=== PATIENT | female | born 2000 | race American Indian/Alaskan Native ===

== ENCOUNTER 2022-04-19 10:40 | Inpatient (IN) | payer BC ==
[2022-04-19] MEDS ORDERED: hydrALAZINE 20 MG/1 ML INJ IV ONE (12:18)
[2022-04-19 12:22] LABS: Basophils # (Auto) 0.1 K/mm3 (0.0-0.1); Basophils % (Auto) 0.5 % (0.0-1.8); Eosinophils # (Auto) 0.2 K/mm3 (0.0-0.4); Eosinophils % (Auto) 1.8 % (0.0-4.3); Hematocrit 35.4 % (30.3-42.9); Hemoglobin 11.6 gm/dl (10.1-14.3); Lymphocytes # (Auto) 1.2 K/mm3 (1.2-5.4); Lymphocytes % (Auto) 10.4 % (13.4-35.0); Mean Corpuscular HGB Conc 33 % (30-34); Mean Corpuscular Volume 85 fl (79-97); Monocytes # (Auto) 1.1 K/mm3 (0.0-0.8); Monocytes % (Auto) 9.4 % (0.0-7.3); Red Blood Count 4.15 M/mm3 (3.65-5.03)
[2022-04-19] MEDS: LACTATED RINGERS 1,000 ML IV SCH (12:25)
[2022-04-19 12:43] LABS: Alanine Aminotransferase 95 units/L (7-56); Uric Acid 5.4 mg/dL (3.5-7.6)
[2022-04-19 12:44] LABS: Platelet Count 89 K/mm3 (140-440)
[2022-04-19 12:45] LABS: Bilirubin,Urine NEG (Negative); Blood,Urine NEG (Negative); Color,Urine Yellow (Yellow); Urobilinogen,Urine < 2.0 mg/dL (<2.0)
[2022-04-19 12:50] LABS: Bacteria,Urine 1+ /HPF (Negative); Mucus,Urine FEW /HPF
[2022-04-19] MEDS ORDERED: SIMETHICONE 80 MG CHEW TAB PO ONE (13:28)
[2022-04-19] MEDS ORDERED: MINERAL OIL 30 ML ORAL LIQD PO PRN (15:32)
[2022-04-19] MEDS ORDERED: CARBOPROST TROMETHAMINE 250 MCG/1 ML INJ IM PRN (15:32)
[2022-04-19] MEDS ORDERED: METHYLERGONOVINE MALEATE 0.2 MG/ML VIAL IM PRN (15:32)
[2022-04-19] MEDS ORDERED: OXYTOCIN 10 UNIT/1 ML INJ IM PRN (15:32)
[2022-04-19] MEDS ORDERED: TERBUTALINE 1 MG/1 ML INJ SUB-Q PRN (15:32)
[2022-04-19] MEDS ORDERED: ePHEDrine SULFATE 50 MG/1 ML INJ IV PRN (15:32)
[2022-04-19] MEDS ORDERED: LOPERAMIDE 2 MG CAP PO PRN (15:32)
[2022-04-19] MEDS ORDERED: LACTATED RINGERS 1,000 ML IV SCH (15:45)
[2022-04-19] MEDS ORDERED: MAGNESIUM SULFATE 4 GM/100 ML BAG IV ONE ×2 (16:00→18:29)
[2022-04-19] MEDS ORDERED: LIDOCAINE (2%) 20 MG/1 ML VIAL 20 ML MDV INFILTRATI ONE (16:00)
[2022-04-19] MEDS ORDERED: miSOPROStol 200 MCG TAB PR PRN (16:00)
[2022-04-19] MEDS ORDERED: OXYTOCIN DRIP 30 UNITS/500 ML BAG IV SCH (16:00)
[2022-04-19] MEDS ORDERED: MAGNESIUM SULFATE 40GM/1000ML 40 GM/1,000 ML BAG IV SCH (16:30)
[2022-04-19] MEDS: OXYTOCIN DRIP 30 UNITS/500 ML BAG IV SCH (19:35)
[2022-04-20] MEDS: BUTORPHANOL 2 MG/1 ML INJ IV PRN ×2 (00:55→06:08)
[2022-04-20] MEDS: OXYTOCIN DRIP 30 UNITS/500 ML BAG IV SCH (11:19)
[2022-04-20] MEDS: LACTATED RINGERS 1,000 ML IV SCH (11:24)
--- NOTE | 2022-04-20 11:26 | History and Physical Report ---
History of Present Illness Date of examination: 04/19/22 Date of admission: 04/19/22 17:34 Chief complaint: My chest hurts History of present illness: Patient is 21-year-old 1 para 0 who presents at 39 weeks with complaint of chest pain and back pain. The pain is actually more epigastric in nature. Patient states that she started having pain yesterday but it was worse on the morning of admission. Patient states she had pizza the day before and activity made the pain worse. When patient presented to triage she was found to have severely elevated blood pressures in the 160s to 170s over 90s to 100s range. This persisted for the first several blood pressures that she was here. Labs were drawn and she was found to have elevated liver function tests, however only minimal protein in her urine. She had no evidence of edema no hyperreflexia. She was also complaining of a headache. Patient receives care at [facility]. She has no previous history of elevated blood pressure. Her course was complicated by late presentation to care with her first visit being at 33 weeks gestation. Because of her persistent elevated blood pressure even after being treated with a dose of hydralazine, decision was made to keep the patient and begin induction of labor for labile gestational hypertension. Past History Past Medical History: no pertinent history Past Surgical History: no surgical history Social history: single - Obstetrical History Expected Date of Delivery: 04/27/22 Actual Gestation: 39 Week(s) 0 Day(s) : 1 Medications and Allergies Allergies Allergy/AdvReac Type Severity Reaction Status Date / Time No Known Allergies Allergy Verified 04/19/22 11:27 Active Meds: Active Medications Butorphanol Tartrate (Butorphanol 2 Mg/1 Ml Inj) 2 mg IV Q2H PRN PRN Reason: Labor Pain Last Admin: 04/20/22 06:08 Dose: 2 mg Carboprost Tromethamine (Carboprost Tromethamine 250 Mcg/1 Ml Inj) 250 mcg IM ONCE PRN PRN Reason: Uterine Bleeding Ephedrine Sulfate (Ephedrine Sulfate 50 Mg/1 Ml Inj) 10 mg IV Q2M PRN PRN Reason: Hypotension Lactated Ringer's (Lactated Ringers) 1,000 mls @ 125 mls/hr IV DIRECT CHIRAG Last Admin: 04/19/22 12:25 Dose: 125 mls/hr Oxytocin/Sodium Chloride (Pitocin/Ns 30 Unit/500ml) 30 units in 500 mls @ 2 mls/hr IV TITR CHIRAG; Protocol Last Admin: 04/20/22 11:19 Dose: 4 ml/hr, 4 mls/hr Lactated Ringer's (Lactated Ringers) 1,000 mls @ 125 mls/hr IV DIRECT CHIRAG Oxytocin/Sodium Chloride (Pitocin/Ns 30 Unit/500ml) 30 units in 500 mls @ 40 mls/hr IV TITR CHIRAG; Protocol Magnesium Sulfate (Magnesium Sulfate 40gm/1000ml) 40 gm in 1,000 mls @ 50 mls/hr IV DIRECT CHIRAG Last Admin: 04/19/22 19:42 Dose: 2 gm/hr, 50 mls/hr Labetalol HCl (Labetalol 200 Mg Tab) 200 mg PO BID CHIRAG Last Admin: 04/20/22 01:23 Dose: 200 mg Loperamide HCl (Loperamide 2 Mg Cap) 2 mg PO ONCE PRN PRN Reason: give with Hemabate Methylergonovine Maleate (Methylergonovine Maleate 0.2 Mg/Ml Vial) 0.2 mg IM ONCE PRN PRN Reason: Uterine Bleeding Mineral Oil (Mineral Oil 30 Ml Oral Liqd) 30 ml PO QHS PRN PRN Reason: Constipation Misoprostol (Misoprostol 200 Mcg Tab) [address] ONCE PRN PRN Reason: Uterine Bleeding Oxytocin (Oxytocin 10 Unit/1 Ml Inj) 10 unit IM ONCE PRN PRN Reason: Uterine Bleeding Terbutaline Sulfate (Terbutaline 1 Mg/1 Ml Inj) 0.25 mg SUB-Q ONCE PRN PRN Reason: Hyperstimulation/Hypertonicity Review of Systems All systems: negative Cardiovascular: chest pain Gastrointestinal: abdominal pain - Vital Signs Vital signs: Vital Signs Pulse Pulse Ox 83 98 04/19/22 11:23 04/19/22 11:23 Temp Pulse Resp BP Pulse Ox 98.8 F 83 18 129/82 96 04/20/22 05:17 04/20/22 11:21 04/20/22 05:17 04/20/22 11:17 04/20/22 11:21 - Physical Exam Cardiovascular: Regular rate, Normal S1, Normal S2 Lungs: Positive: Clear to auscultation, Normal air movement Abdomen: Positive: normal appearance, soft, normal bowel sounds Genitourinary (Female): Positive: normal external genitalia, normal perenium Vagina: Positive: normal moisture Uterus: Positive: enlarged Anus/Rectum: Positive: normal perianal skin - Obstetrical Cervical Dilatation: 2.5 Cervical Effacement Percentage: 50 station: -3 Uterine Contraction Pattern: Irregular Uterine Contraction Intensity: Moderate Results Result Diagrams: 04/19/22 11:46 04/19/22 11:46 Abnormal lab results 04/19/22 04/19/22 04/20/22 Range/Units 11:46 11:46 07:38 WBC 11.3 H (4.5-11.0) K/mm3 Plt Count 89 L (140-440) K/mm3 Lymph % (Auto) 10.4 L (13.4-35.0) % [facility] % (Auto) 9.4 H (0.0-7.3) % [facility] # (Auto) 1.1 H (0.0-0.8) K/mm3 Seg Neutrophils % 77.9 H (40.0-70.0) % Seg Neutrophils # 8.8 H (1.8-7.7) K/mm3 Magnesium 6.40 H (1.7-2.3) mg/dL AST 103 H (5-40) units/L ALT 95 H (7-56) units/L Lactate Dehydrogenase 299 H (91-180) units/L All other labs normal. Assessment and Plan IUP at 39 weeks with elevated blood pressure and low platelets as well as elevated liver function test. Will admit for labor gestational hypertension. We will proceed with induction of labor. Patient replaced on magnesium therapy. Patient to begin labetalol 100 mg twice daily. All this discussed with the rohit saravia and her family member and patient understands. Anticipate .
--- NOTE | 2022-04-20 11:30 | Progress Note ---
Assessment and Plan Hospital day 2 with induction of labor secondary to labor gestational hypertension and low platelets. Continue induction of labor. Anticipate Subjective - Subjective Date of service: 04/20/22 Interval history: Patient is 21-year-old 1 para 0 who presents at 39 weeks with complaint of chest pain and back pain. The pain is actually more epigastric in nature. Patient states that she started having pain yesterday but it was worse on the morning of admission. Patient states she had pizza the day before and activity made the pain worse. When patient presented to triage she was found to have severely elevated blood pressures in the 160s to 170s over 90s to 100s range. This persisted for the first several blood pressures that she was here. Labs were drawn and she was found to have elevated liver function tests, however only minimal protein in her urine. She had no evidence of edema no hyperreflexia. She was also complaining of a headache. Patient receives care at [facility]. She has no previous history of elevated blood pressure. Her course was complicated by late presentation to care with her first visit being at 33 weeks gestation. Because of her persistent elevated blood pressure even after being treated with a dose of hydralazine, decision was made to keep the patient and begin induction of labor for labile gestational hypertension. 04/20-patient with SROM overnight. She continues to feel contractions. heart tones are normal. Blood pressure remains labile. Patient reports: new complaints, loss of fluid, movement normal Objective - Vital Signs Vital Signs: Vital Signs - 12hr 04/19/22 04/19/22 04/19/22 23:31 23:36 23:41 Temperature Pulse Rate 91 H 89 102 H Respiratory Rate Blood Pressure Blood Pressure [Right] O2 Sat by Pulse 98 97 96 Oximetry 04/19/22 04/19/22 04/19/22 23:46 23:47 23:51 Temperature Pulse Rate 97 H 89 91 H Respiratory Rate Blood Pressure 131/84 Blood Pressure [Right] O2 Sat by Pulse 97 97 Oximetry 04/19/22 04/20/22 04/20/22 23:56 00:01 00:06 Temperature Pulse Rate 94 H 92 H 93 H Respiratory Rate Blood Pressure Blood Pressure [Right] O2 Sat by Pulse 97 98 98 Oximetry 04/20/22 04/20/22 04/20/22 00:11 00:16 00:17 Temperature Pulse Rate 96 H 102 H 96 H Respiratory Rate Blood Pressure 155/91 Blood Pressure [Right] O2 Sat by Pulse 97 99 Oximetry 04/20/22 04/20/22 04/20/22 00:21 00:26 00:31 Temperature Pulse Rate 92 H 96 H 98 H Respiratory Rate Blood Pressure Blood Pressure [Right] O2 Sat by Pulse 96 99 97 Oximetry 04/20/22 04/20/22 04/20/22 00:36 00:41 00:46 Temperature Pulse Rate 100 H 100 H 99 H Respiratory Rate Blood Pressure Blood Pressure [Right] O2 Sat by Pulse 98 99 98 Oximetry 04/20/22 04/20/22 04/20/22 00:48 00:51 00:54 Temperature 98.0 F Pulse Rate 90 100 H 98 H Respiratory 20 Rate Blood Pressure 158/95 Blood Pressure 158/95 [Right] O2 Sat by Pulse 100 99 92 Oximetry 04/20/22 04/20/22 04/20/22 00:56 01:01 01:06 Temperature Pulse Rate 97 H 103 H 97 H Respiratory Rate Blood Pressure Blood Pressure [Right] O2 Sat by Pulse 93 96 96 Oximetry 04/20/22 04/20/22 04/20/22 01:11 01:16 01:18 Temperature Pulse Rate 112 H 100 H 96 H Respiratory Rate Blood Pressure 152/88 Blood Pressure [Right] O2 Sat by Pulse 96 95 Oximetry 04/20/22 04/20/22 04/20/22 01:21 01:23 01:26 Temperature Pulse Rate 102 H 97 H Respiratory Rate Blood Pressure 152/88 Blood Pressure [Right] O2 Sat by Pulse 97 96 Oximetry 04/20/22 04/20/22 04/20/22 01:31 01:36 01:41 Temperature Pulse Rate 97 H 94 H 90 Respiratory Rate Blood Pressure Blood Pressure [Right] O2 Sat by Pulse 97 96 98 Oximetry 04/20/22 04/20/22 04/20/22 01:46 01:47 01:51 Temperature Pulse Rate 97 H 95 H 94 H Respiratory Rate Blood Pressure 142/90 Blood Pressure [Right] O2 Sat by Pulse 98 96 Oximetry 04/20/22 04/20/22 04/20/22 01:56 02:00 02:01 Temperature Pulse Rate 91 H 89 91 H Respiratory Rate Blood Pressure Blood Pressure [Right] O2 Sat by Pulse 95 94 96 Oximetry 04/20/22 04/20/22 04/20/22 02:05 02:06 02:11 Temperature Pulse Rate 92 H 101 H 96 H Respiratory Rate Blood Pressure Blood Pressure [Right] O2 Sat by Pulse 93 99 97 Oximetry 04/20/22 04/20/22 04/20/22 02:16 02:19 02:21 Temperature Pulse Rate 94 H 94 H 96 H Respiratory Rate Blood Pressure Blood Pressure [Right] O2 Sat by Pulse 97 94 96 Oximetry 04/20/22 04/20/22 04/20/22 02:26 02:31 02:36 Temperature Pulse Rate 99 H 94 H 90 Respiratory Rate Blood Pressure Blood Pressure [Right] O2 Sat by Pulse 94 97 96 Oximetry 04/20/22 04/20/22 04/20/22 02:41 02:46 02:47 Temperature Pulse Rate 93 H 94 H 97 H Respiratory Rate Blood Pressure 136/82 Blood Pressure [Right] O2 Sat by Pulse 96 95 94 Oximetry 04/20/22 04/20/22 04/20/22 02:51 02:54 02:56 Temperature Pulse Rate 86 91 H 91 H Respiratory Rate Blood Pressure Blood Pressure [Right] O2 Sat by Pulse 95 93 95 Oximetry 04/20/22 04/20/22 04/20/22 03:01 03:06 03:11 Temperature Pulse Rate 92 H 88 86 Respiratory Rate Blood Pressure Blood Pressure [Right] O2 Sat by Pulse 94 97 97 Oximetry 04/20/22 04/20/22 04/20/22 03:16 03:17 03:18 Temperature Pulse Rate 100 H 98 H 85 Respiratory Rate Blood Pressure 137/77 Blood Pressure [Right] O2 Sat by Pulse 95 94 Oximetry 04/20/22 04/20/22 04/20/22 03:21 03:26 03:29 Temperature Pulse Rate 100 H 90 91 H Respiratory Rate Blood Pressure Blood Pressure [Right] O2 Sat by Pulse 96 96 93 Oximetry 04/20/22 04/20/22 04/20/22 03:31 03:35 03:36 Temperature Pulse Rate 90 99 H 89 Respiratory Rate Blood Pressure Blood Pressure [Right] O2 Sat by Pulse 96 94 97 Oximetry 04/20/22 04/20/22 04/20/22 03:41 03:46 03:47 Temperature Pulse Rate 89 89 88 Respiratory Rate Blood Pressure 110/69 Blood Pressure [Right] O2 Sat by Pulse 95 95 94 Oximetry 04/20/22 04/20/22 04/20/22 03:51 03:56 04:01 Temperature Pulse Rate 88 88 88 Respiratory Rate Blood Pressure Blood Pressure [Right] O2 Sat by Pulse 96 94 95 Oximetry 04/20/22 04/20/22 04/20/22 04:06 04:07 04:11 Temperature Pulse Rate 90 95 H 89 Respiratory Rate Blood Pressure Blood Pressure [Right] O2 Sat by Pulse 95 93 95 Oximetry 04/20/22 04/20/22 04/20/22 04:16 04:18 04:21 Temperature Pulse Rate 99 H 95 H 90 Respiratory Rate Blood Pressure 130/83 Blood Pressure [Right] O2 Sat by Pulse 96 94 94 Oximetry 04/20/22 04/20/22 04/20/22 04:24 04:26 04:31 Temperature Pulse Rate 91 H 98 H 91 H Respiratory Rate Blood Pressure Blood Pressure [Right] O2 Sat by Pulse 94 97 96 Oximetry 04/20/22 04/20/22 04/20/22 04:36 04:38 04:41 Temperature Pulse Rate 90 97 H 94 H Respiratory Rate Blood Pressure Blood Pressure [Right] O2 Sat by Pulse 96 94 95 Oximetry 04/20/22 04/20/22 04/20/22 04:44 04:46 04:48 Temperature Pulse Rate 90 104 H 95 H Respiratory Rate Blood Pressure 141/84 Blood Pressure [Right] O2 Sat by Pulse 94 94 Oximetry 04/20/22 04/20/22 04/20/22 04:50 04:51 04:56 Temperature Pulse Rate 89 92 H 95 H Respiratory Rate Blood Pressure Blood Pressure [Right] O2 Sat by Pulse 94 96 95 Oximetry 04/20/22 04/20/22 04/20/22 05:01 05:06 05:11 Temperature Pulse Rate 85 89 94 H Respiratory Rate Blood Pressure Blood Pressure [Right] O2 Sat by Pulse 96 97 96 Oximetry 04/20/22 04/20/22 04/20/22 05:12 05:16 05:17 Temperature 98.8 F Pulse Rate 93 H 93 H 87 Respiratory 18 Rate Blood Pressure 130/80 Blood Pressure 130/80 [Right] O2 Sat by Pulse 94 94 95 Oximetry 04/20/22 04/20/22 04/20/22 05:19 05:21 05:24 Temperature Pulse Rate 87 88 88 Respiratory Rate Blood Pressure Blood Pressure [Right] O2 Sat by Pulse 94 95 94 Oximetry 04/20/22 04/20/22 04/20/22 05:26 05:31 05:36 Temperature Pulse Rate 88 88 87 Respiratory Rate Blood Pressure Blood Pressure [Right] O2 Sat by Pulse 95 97 97 Oximetry 04/20/22 04/20/22 04/20/22 05:41 05:42 05:46 Temperature Pulse Rate 88 94 H 86 Respiratory Rate Blood Pressure Blood Pressure [Right] O2 Sat by Pulse 97 93 95 Oximetry 04/20/22 04/20/22 04/20/22 05:47 05:49 05:51 Temperature Pulse Rate 88 86 86 Respiratory Rate Blood Pressure 129/78 Blood Pressure [Right] O2 Sat by Pulse 94 95 Oximetry 04/20/22 04/20/22 04/20/22 05:56 06:01 06:06 Temperature Pulse Rate 88 88 90 Respiratory Rate Blood Pressure Blood Pressure [Right] O2 Sat by Pulse 96 95 97 Oximetry 04/20/22 04/20/22 04/20/22 06:09 06:11 06:16 Temperature Pulse Rate 95 H 89 89 Respiratory Rate Blood Pressure Blood Pressure [Right] O2 Sat by Pulse 94 94 95 Oximetry 04/20/22 04/20/22 04/20/22 06:17 06:21 06:26 Temperature Pulse Rate 88 87 89 Respiratory Rate Blood Pressure 126/67 Blood Pressure [Right] O2 Sat by Pulse 94 93 93 Oximetry 04/20/22 04/20/22 04/20/22 06:31 06:36 06:41 Temperature Pulse Rate 86 85 85 Respiratory Rate Blood Pressure Blood Pressure [Right] O2 Sat by Pulse 93 96 95 Oximetry 04/20/22 04/20/22 04/20/22 06:46 06:47 06:51 Temperature Pulse Rate 89 90 84 Respiratory Rate Blood Pressure 123/69 Blood Pressure [Right] O2 Sat by Pulse 95 96 Oximetry 04/20/22 04/20/22 04/20/22 06:56 07:01 07:06 Temperature Pulse Rate 93 H 87 82 Respiratory Rate Blood Pressure Blood Pressure [Right] O2 Sat by Pulse 97 97 96 Oximetry 04/20/22 04/20/22 04/20/22 07:11 07:13 07:16 Temperature Pulse Rate 79 82 80 Respiratory Rate Blood Pressure Blood Pressure [Right] O2 Sat by Pulse 96 94 95 Oximetry 04/20/22 04/20/22 04/20/22 07:17 07:21 07:26 Temperature Pulse Rate 81 78 79 Respiratory Rate Blood Pressure 110/58 Blood Pressure [Right] O2 Sat by Pulse 97 96 Oximetry 04/20/22 04/20/22 04/20/22 07:31 07:36 07:41 Temperature Pulse Rate 78 80 79 Respiratory Rate Blood Pressure Blood Pressure [Right] O2 Sat by Pulse 97 96 93 Oximetry 04/20/22 04/20/22 04/20/22 07:46 07:47 07:51 Temperature Pulse Rate 81 80 78 Respiratory Rate Blood Pressure 132/76 Blood Pressure [Right] O2 Sat by Pulse 95 95 Oximetry 04/20/22 04/20/22 04/20/22 07:56 08:01 08:06 Temperature Pulse Rate 79 79 84 Respiratory Rate Blood Pressure Blood Pressure [Right] O2 Sat by Pulse 98 96 97 Oximetry 04/20/22 04/20/22 04/20/22 08:11 08:16 08:17 Temperature Pulse Rate 78 77 79 Respiratory Rate Blood Pressure 115/73 Blood Pressure [Right] O2 Sat by Pulse 95 96 Oximetry 04/20/22 04/20/22 04/20/22 08:21 08:26 08:31 Temperature Pulse Rate 86 78 79 Respiratory Rate Blood Pressure Blood Pressure [Right] O2 Sat by Pulse 95 97 96 Oximetry 04/20/22 04/20/22 04/20/22 08:36 08:41 08:46 Temperature Pulse Rate 81 81 79 Respiratory Rate Blood Pressure Blood Pressure [Right] O2 Sat by Pulse 97 97 98 Oximetry 04/20/22 04/20/22 04/20/22 08:47 08:51 08:56 Temperature Pulse Rate 81 80 84 Respiratory Rate Blood Pressure 122/76 Blood Pressure [Right] O2 Sat by Pulse 98 98 Oximetry 04/20/22 04/20/22 04/20/22 09:01 09:02 09:06 Temperature Pulse Rate 79 77 79 Respiratory Rate Blood Pressure Blood Pressure [Right] O2 Sat by Pulse 98 92 97 Oximetry 04/20/22 04/20/22 04/20/22 09:11 09:16 09:17 Temperature Pulse Rate 72 75 76 Respiratory Rate Blood Pressure 122/78 Blood Pressure [Right] O2 Sat by Pulse 97 96 Oximetry 04/20/22 04/20/22 04/20/22 09:21 09:26 09:31 Temperature Pulse Rate 79 75 80 Respiratory Rate Blood Pressure Blood Pressure [Right] O2 Sat by Pulse 98 97 96 Oximetry 04/20/22 04/20/22 04/20/22 09:36 09:41 09:46 Temperature Pulse Rate 77 83 80 Respiratory Rate Blood Pressure Blood Pressure [Right] O2 Sat by Pulse 96 97 97 Oximetry 04/20/22 04/20/22 04/20/22 09:47 09:51 09:56 Temperature Pulse Rate 77 79 73 Respiratory Rate Blood Pressure 127/82 Blood Pressure [Right] O2 Sat by Pulse 97 96 Oximetry 04/20/22 04/20/22 04/20/22 10:01 10:04 10:06 Temperature Pulse Rate 77 77 78 Respiratory Rate Blood Pressure Blood Pressure [Right] O2 Sat by Pulse 95 94 95 Oximetry 04/20/22 04/20/22 04/20/22 10:11 10:16 10:17 Temperature Pulse Rate 79 78 82 Respiratory Rate Blood Pressure 121/77 Blood Pressure [Right] O2 Sat by Pulse 96 96 Oximetry 04/20/22 04/20/22 04/20/22 10:21 10:26 10:31 Temperature Pulse Rate 78 76 77 Respiratory Rate Blood Pressure Blood Pressure [Right] O2 Sat by Pulse 96 96 94 Oximetry 04/20/22 04/20/22 04/20/22 10:36 10:41 10:46 Temperature Pulse Rate 78 76 77 Respiratory Rate Blood Pressure Blood Pressure [Right] O2 Sat by Pulse 96 96 95 Oximetry 04/20/22 04/20/22 04/20/22 10:47 10:51 10:56 Temperature Pulse Rate 80 76 77 Respiratory Rate Blood Pressure 119/75 Blood Pressure [Right] O2 Sat by Pulse 95 96 Oximetry 04/20/22 04/20/22 04/20/22 10:58 11:01 11:06 Temperature Pulse Rate 82 75 78 Respiratory Rate Blood Pressure Blood Pressure [Right] O2 Sat by Pulse 94 96 96 Oximetry 04/20/22 04/20/22 04/20/22 11:09 11:11 11:15 Temperature Pulse Rate 78 77 82 Respiratory Rate Blood Pressure Blood Pressure [Right] O2 Sat by Pulse 94 94 94 Oximetry 04/20/22 04/20/22 04/20/22 11:16 11:17 11:21 Temperature Pulse Rate 76 80 83 Respiratory Rate Blood Pressure 129/82 Blood Pressure [Right] O2 Sat by Pulse 96 96 Oximetry 04/20/22 04/20/22 11:22 11:26 Temperature Pulse Rate 79 Respiratory Rate Blood Pressure 129/82 Blood Pressure [Right] O2 Sat by Pulse 98 Oximetry - Exam Breasts: deferred Cardiovascular: Regular rate, Normal S1, Normal S2 Lungs: Clear to auscultation, Normal air movement Abdomen: Present: normal appearance, soft, normal bowel sounds Uterus: Present: normal, firm FHR: auscultation normal Cervical Dilatation: 4.5 Cervical Effacement Percentage: 90 station: -2 Uterine Contraction Pattern: Regular Uterine Contraction Intensity: Moderate Deep Tendon Reflex Grade: Normal +2 - Labs Labs: Abnormal Labs 04/19/22 04/19/22 04/20/22 11:46 11:46 07:38 WBC 11.3 H Plt Count 89 L Lymph % (Auto) 10.4 L [place] % (Auto) 9.4 H [place] # (Auto) 1.1 H Seg Neutrophils % 77.9 H Seg Neutrophils # 8.8 H Magnesium 6.40 H AST 103 H ALT 95 H Lactate Dehydrogenase 299 H Laboratory Results - last 24 hr 04/19/22 04/19/22 04/19/22 11:46 11:46 11:46 WBC 11.3 H RBC 4.15 Hgb 11.6 Hct 35.4 MCV 85 MCH 28 MCHC 33 RDW 15.0 Plt Count 89 L Lymph % (Auto) 10.4 L [place] % (Auto) 9.4 H Eos % (Auto) 1.8 Baso % (Auto) 0.5 Lymph # (Auto) 1.2 Mitchell # (Auto) 1.1 H Eos # (Auto) 0.2 Baso # (Auto) 0.1 Seg Neutrophils % 77.9 H Seg Neutrophils # 8.8 H Creatinine Estimated GFR Uric Acid Magnesium AST ALT Lactate Dehydrogenase Urine Color Yellow Urine Turbidity Clear Urine pH 6.0 Ur Specific [place] 1.011 Urine Protein 100 mg/dl Urine Glucose (UA) Neg Urine Ketones Neg Urine Blood Neg Urine Nitrite Neg Urine Bilirubin Neg Urine Urobilinogen < 2.0 Ur Leukocyte Esterase Neg Urine WBC (Auto) 2.0 Urine RBC (Auto) 1.0 U Epithel Cells (Auto) 1.0 Urine Bacteria (Auto) 1+ Urine Mucus Few Blood Type O POSITIVE Antibody Screen Negative 04/19/22 04/20/22 11:46 07:38 WBC RBC Hgb Hct MCV MCH MCHC RDW Plt Count Lymph % (Auto) [place] % (Auto) Eos % (Auto) Baso % (Auto) Lymph # (Auto) [place] # (Auto) Eos # (Auto) Baso # (Auto) Seg Neutrophils % Seg Neutrophils # Creatinine 0.7 Estimated GFR > 60 Uric Acid 5.4 Magnesium 6.40 H AST 103 H ALT 95 H Lactate Dehydrogenase 299 H Urine Color Urine Turbidity Urine pH Ur Specific [place] Urine Protein Urine Glucose (UA) Urine Ketones Urine Blood Urine Nitrite Urine Bilirubin Urine Urobilinogen Ur Leukocyte Esterase Urine WBC (Auto) Urine RBC (Auto) U Epithel Cells (Auto) Urine Bacteria (Auto) Urine Mucus Blood Type Antibody Screen
[2022-04-20] MEDS ORDERED: fentaNYL 100 MCG/2 ML INJ IV STA (12:07)
[2022-04-20] MEDS ORDERED: LIDOCAINE (2%) 20 MG/1 ML VIAL 20 ML MDV INFILTRATI ONE (16:49)
[2022-04-20] MEDS ORDERED: LIDOCAINE (1%) 10 MG/1 ML VIAL 20 ML MDV INFILTRATI NR (17:00)
--- NOTE | 2022-04-20 17:28 | Procedure Note ---
OB Delivery Note - Delivery Date of Delivery: 04/20/22 Surgeon: ISRAEL VILLEDA Estimated blood loss: 300cc - Vaginal Delivery presentation: vertex Delivery position: OA Intrapartum events: gestational hypertension Delivery induction: oxytocin Delivery monitor: external FHT, external uterine Route of delivery: Delivery placenta: spontaneous Delivery cord: 3 umbilical vessels Episiotomy: none Delivery laceration: 2nd degree Delivery repair: vicryl Anesthesia: local Delivery comments: Viable male delivered over intact perineum. There was no evidence of nuchal cord. Infant had spontaneous cry and was placed on maternal abdomen. Cord was clamped and cut when finished pulsating. Weight 7 pounds 2 o unces. Apgars 8/9. Placenta was delivered spontaneously and intact with three-vessel cord. Patient had a internal second-degree laceration that was repaired with 2-0 Vicryl. Excellent hemostasis. Patient tolerated procedure well. - Infant A at 1 minute: 8 at 5 minutes: 9 Infant Gender: Male (7 pounds 2 ounces)
[2022-04-20] MEDS ORDERED: diphenhydrAMINE 25 MG CAP PO PRN (21:09)
[2022-04-20] MEDS ORDERED: ACETAMINOPHEN 325 MG TAB PO PRN (21:09)
[2022-04-20] MEDS ORDERED: MAGNESIUM HYDROXIDE (MOM) ORAL LIQD UDC PO PRN (21:09)
[2022-04-20] MEDS ORDERED: ONDANSETRON 4 MG/2 ML INJ IV PRN (21:09)
[2022-04-20] MEDS ORDERED: PROMETHAZINE 25 MG TAB PO PRN (21:09)
[2022-04-20] MEDS ORDERED: HYDROcodone/ACETAMINOPHEN 5-325 MG TAB PO PRN (21:09)
[2022-04-20] MEDS ORDERED: PROMETHAZINE 25 MG RECT SUPP PR PRN (21:09)
[2022-04-20] MEDS ORDERED: WITCH HAZEL/ GLYCERIN PAD TP PRN (21:09)
[2022-04-20] MEDS ORDERED: LANOLIN/ZINC/DIMETHICONE (LANSINOH) 7 GM TP PRN (21:09)
[2022-04-21] MEDS: IBUPROFEN 600 MG TAB PO SCH ×3 (03:47→23:56)
--- NOTE | 2022-04-21 08:14 | Progress Note ---
Assessment and Plan A: PPD#1 s/p at term HELLP syndrome Obesity P: Patient to be transferred to labor and delivery to complete 24 hours of magnesium sulfate Repeat [facility] labs Subjective - Subjective Date of service: 04/21/22 Principal diagnosis: s/p at term, HELLP syndrome Interval history: Patient feels well this morning. She denies headache, blurry vision, chest pain, or abdominal pain. Patient reports: appetite normal, voiding normally, pain well controlled, ambulating normally : doing well Objective - Vital Signs Latest vital signs: Vital Signs Temp Pulse Resp BP BP Pulse Ox Pulse Ox 04/21/22 04:45 98.7 F 88 20 124/73 98 04/21/22 04:30 98 04/21/22 03:58 89 120/70 04/21/22 03:55 90 122/66 04/21/22 03:48 20 04/21/22 03:47 20 04/21/22 03:25 84 118/71 04/21/22 02:55 95 H 115/66 04/21/22 02:25 95 H 116/56 04/21/22 01:55 90 97/59 04/21/22 01:25 88 112/55 04/21/22 00:55 88 107/56 04/21/22 00:25 96 H 116/76 04/20/22 23:58 80 L 04/20/22 23:56 97 H 98 04/20/22 23:51 97 H 98 04/20/22 23:46 98 H 98 04/20/22 23:41 96 H 114/68 98 04/20/22 23:36 88 97 04/20/22 23:31 90 97 04/20/22 23:26 92 H 124/73 97 04/20/22 23:21 95 H 99 04/20/22 23:16 94 H 98 04/20/22 23:11 94 H 98 04/20/22 23:10 94 H 118/78 04/20/22 23:06 87 98 04/20/22 23:01 93 H 97 04/20/22 22:56 95 H 116/76 98 04/20/22 22:51 100 H 98 04/20/22 22:46 87 98 04/20/22 22:41 88 122/79 98 04/20/22 22:36 87 98 07/17/22 22:31 98 H 98 1722 22:26 91 H 122/75 98 071722 22:21 95 H 98 1722 22:16 91 H 98 1722 22:11 87 98 1722 22:10 88 118/70 1722 22:06 90 98 1722 22:01 90 98 1722 21:56 96 H 98 1722 21:55 89 116/71 1722 21:51 88 98 1722 21:46 89 99 1722 21:41 89 99 1722 21:40 84 116/69 1722 21:36 90 98 1722 21:31 91 H 98 1722 21:27 89 108/63 1722 21:26 90 101/59 97 1722 21:21 93 H 98 04/20/22 21:16 89 98 04/20/22 21:11 90 98 04/20/22 21:10 86 108/60 22 21:06 89 98 04/20/22 21:01 88 98 22 20:56 90 98 22 20:55 83 116/68 22 20:51 84 98 22 20:46 80 98 22 20:41 81 98 22 20:40 82 117/72 22 20:36 82 97 1722 20:31 81 98 22 20:26 85 119/71 98 1722 20:21 80 98 1722 20:16 83 98 22 20:11 83 98 1722 20:10 80 101/59 22 20:06 82 97 22 20:01 81 98 22 19:57 78 92/55 1722 19:56 78 99 04/20/22 19:54 76 87/50 1722 19:51 84 97 1722 19:47 92 H 107/74 1722 19:46 90 98 1722 19:41 85 98 17/22 19:36 85 97 1722 19:31 85 107/61 97 1722 19:26 82 97 1722 19:21 82 98 1722 19:16 82 108/63 97 1722 19:11 82 98 1722 19:06 81 98 1722 19:01 82 113/60 97 1722 18:56 81 98 1722 18:51 82 97 1722 18:46 79 124/69 98 1722 18:41 81 98 1722 18:36 76 98 1722 18:31 78 119/62 98 1722 18:26 81 98 1722 18:21 91 H 98 22 18:16 88 118/72 98 04/20/22 18:11 87 98 04/20/22 18:06 85 98 04/20/22 18:01 84 116/72 98 22 17:56 85 98 22 17:51 85 98 1722 17:46 86 113/69 98 1722 17:41 88 98 1722 17:36 86 99 1722 17:31 88 123/82 98 1722 17:26 87 99 22 17:21 87 99 22 17:20 77 127/81 22 17:19 78 93 22 17:17 83 146/95 1722 17:14 77 99 22 17:09 77 93 1722 17:08 78 87 1722 17:04 78 98 1722 16:59 82 93 1722 16:54 78 95 1722 16:52 82 93 1722 16:48 81 95 1722 16:47 85 125/71 1722 16:46 85 94 1722 16:43 81 L 1722 16:38 98 H 94 1722 16:37 94 H 95 1722 16:32 81 96 1722 16:31 33 L 07/17/22 16:27 78 96 04/20/22 16:25 77 94 04/20/22 16:22 79 96 04/20/22 16:18 76 156/90 04/20/22 16:17 78 94 04/20/22 16:16 80 93 04/20/22 16:12 82 97 04/20/22 16:07 81 97 04/20/22 16:02 79 98 04/20/22 15:57 76 96 04/20/22 15:54 75 92 04/20/22 15:52 78 96 04/20/22 15:49 74 161/95 04/20/22 15:47 75 95 04/20/22 15:46 85 94 04/20/22 15:42 77 95 04/20/22 15:37 85 92 04/20/22 15:36 89 04/20/22 15:32 73 97 04/20/22 15:29 84 04/20/22 15:27 77 94 04/20/22 15:23 72 86 04/20/22 15:22 75 96 04/20/22 15:19 76 164/97 04/20/22 15:17 78 96 04/20/22 15:12 77 95 04/20/22 15:10 85 94 04/20/22 15:06 83 95 04/20/22 15:01 82 94 04/20/22 15:00 87 93 04/20/22 14:56 80 94 04/20/22 14:53 77 91 04/20/22 14:51 79 96 04/20/22 14:47 80 156/95 04/20/22 14:46 87 95 04/20/22 14:41 79 95 04/20/22 14:40 90 94 04/20/22 14:36 82 97 04/20/22 14:34 85 94 04/20/22 14:31 84 97 04/20/22 14:26 81 95 04/20/22 14:23 79 92 04/20/22 14:21 83 96 04/20/22 14:16 83 96 04/20/22 14:11 87 96 04/20/22 14:08 98 04/20/22 14:06 78 95 04/20/22 14:01 90 96 04/20/22 13:59 87 94 04/20/22 13:56 81 96 04/20/22 13:51 89 98 04/20/22 13:47 84 128/74 04/20/22 13:46 84 95 04/20/22 13:41 89 96 04/20/22 13:36 89 94 04/20/22 13:34 87 94 04/20/22 13:31 86 95 04/20/22 13:28 84 93 04/20/22 13:26 85 95 04/20/22 13:22 90 94 04/20/22 13:21 82 98 04/20/22 13:18 84 141/75 04/20/22 13:16 81 96 04/20/22 13:11 87 97 04/20/22 13:07 85 94 04/20/22 13:06 84 96 04/20/22 13:01 85 95 04/20/22 12:56 78 96 04/20/22 12:52 82 94 04/20/22 12:51 79 95 04/20/22 12:50 81 116/65 04/20/22 12:46 85 96 04/20/22 12:41 82 96 04/20/22 12:36 79 93 04/20/22 12:31 77 95 04/20/22 12:29 72 94 04/20/22 12:26 75 95 04/20/22 12:23 81 94 04/20/22 12:21 85 97 04/20/22 12:19 78 141/87 04/20/22 12:16 77 97 04/20/22 12:11 77 96 04/20/22 12:06 80 96 04/20/22 12:01 82 97 04/20/22 12:00 98.3 F 04/20/22 11:56 78 97 04/20/22 11:51 81 96 04/20/22 11:47 81 128/85 04/20/22 11:46 76 96 04/20/22 11:41 85 97 04/20/22 11:36 80 96 04/20/22 11:35 83 94 04/20/22 11:31 79 97 04/20/22 11:26 79 98 04/20/22 11:22 129/82 04/20/22 11:21 83 96 04/20/22 11:17 80 129/82 04/20/22 11:16 76 96 04/20/22 11:15 82 94 04/20/22 11:11 77 94 04/20/22 11:09 78 94 04/20/22 11:06 78 96 04/20/22 11:01 75 96 04/20/22 10:58 82 94 22 10:56 77 96 04/20/22 10:51 76 95 04/20/22 10:47 80 119/75 04/20/22 10:46 77 95 04/20/22 10:41 76 96 04/20/22 10:36 78 96 04/20/22 10:31 77 94 04/20/22 10:26 76 96 04/20/22 10:21 78 96 04/20/22 10:17 82 121/77 04/20/22 10:16 78 96 04/20/22 10:11 79 96 04/20/22 10:06 78 95 04/20/22 10:04 77 94 04/20/22 10:01 77 95 04/20/22 09:56 73 96 04/20/22 09:51 79 97 04/20/22 09:47 77 127/82 04/20/22 09:46 80 97 04/20/22 09:41 83 97 04/20/22 09:36 77 96 04/20/22 09:31 80 96 04/20/22 09:26 75 97 04/20/22 09:21 79 98 04/20/22 09:17 76 122/78 04/20/22 09:16 75 96 04/20/22 09:11 72 97 04/20/22 09:06 79 97 04/20/22 09:02 77 92 04/20/22 09:01 79 98 04/20/22 09:00 98.7 F 04/20/22 08:56 84 98 04/20/22 08:51 80 98 04/20/22 08:47 81 122/76 04/20/22 08:46 79 98 04/20/22 08:41 81 97 04/20/22 08:36 81 97 04/20/22 08:31 79 96 04/20/22 08:26 78 97 04/20/22 08:21 86 95 04/20/22 08:17 79 115/73 04/20/22 08:16 77 96 Intake and Output 07/1704/21/22 04/21/22 22:59 06:59 14:59 Other: Estimated Blood Loss 250 - Exam Breasts: Present: deferred Abdomen: Present: soft (obese ) Uterus: Present: fundal height at umbilicus Extremities: Present: edema (1+) - Labs Labs: Abnormal lab results 04/20/22 04/20/22 Range/Units 07:38 16:19 Magnesium 6.40 H 7.00 H (1.7-2.3) mg/dL
[2022-04-21] MEDS ORDERED: BENZOCAINE/MENTHOL 20/0.5% TOP SPRAY 56 GM TP PRN (08:38)
[2022-04-21 09:29] LABS: Hematocrit 24.1 % (30.3-42.9); Hemoglobin 7.9 gm/dl (10.1-14.3)
[2022-04-21] MEDS ORDERED: MAGNESIUM SULFATE 4 GM/100 ML BAG IV ONE (10:27)
[2022-04-21] MEDS ORDERED: CALCIUM GLUCONATE 1000 MG/10 ML INJ IV PRN (10:27)
[2022-04-21] MEDS ORDERED: MAGNESIUM SULFATE 40GM/1000ML 40 GM/1,000 ML BAG IV SCH (11:00)
[2022-04-21] MEDS: DOCUSATE SODIUM 100 MG CAP PO SCH ×2 (11:05→23:56)
[2022-04-21] MEDS: PRENATAL VIT27-FE FUMARATE-FOLIC ACID VIT TAB PO SCH (11:06)
[2022-04-21] MEDS: LACTATED RINGERS 1,000 ML IV SCH (11:06)
[2022-04-21 12:41] LABS: Hematocrit 25.1 % (30.3-42.9); Mean Corpuscular HGB Conc 32 % (30-34); Mean Corpuscular Volume 87 fl (79-97); Platelet Count 116 K/mm3 (140-440); Red Blood Count 2.89 M/mm3 (3.65-5.03); Red Cell Distribution Width 15.2 % (13.2-15.2)
[2022-04-21 12:57] LABS: Alanine Aminotransferase 51 units/L (7-56); Uric Acid 7.6 mg/dL (3.5-7.6)
[2022-04-21 14:06] LABS: Bilirubin,Urine NEG (Negative); Blood,Urine MOD (Negative); Color,Urine Yellow (Yellow); Protein,Urine <15 mg/dL mg/dL (Negative); Urobilinogen,Urine < 2.0 mg/dL (<2.0)
[2022-04-21 14:12] LABS: Hyaline Casts,Urine 1 /LPF; Mucus,Urine FEW /HPF
[2022-04-21 14:13] LABS: WBC,Urine < 1.0 /HPF (0.0-6.0)
[2022-04-22] MEDS: LACTATED RINGERS 1,000 ML IV SCH (00:04)
--- NOTE | 2022-04-22 08:38 | Progress Note ---
Assessment and Plan A: PPD#2 s/p at term HELLP syndrome on magnesium sulfate for seizure prophylaxis Obesity P: Complete 24 hours of magnesium sulfate then transfer to Mother/Baby for observation Subjective - Subjective Date of service: 04/22/22 Principal diagnosis: s/p at term, HELLP syndrome Interval history: Patient feels well this morning. She denies headache, blurry vision, chest pain, or abdominal pain. Patient is receiving magnesium sulfate for seizure prophylaxis Patient reports: appetite normal, pain well controlled, no voiding normally (mejia in place ), no ambulating normally : doing well Objective - Vital Signs Latest vital signs: Vital Signs Temp Pulse Resp BP Pulse Ox Pulse Ox 04/22/22 08:31 77 98 04/22/22 08:26 82 98 04/22/22 08:21 80 97 04/22/22 08:16 78 98 04/22/22 08:11 85 122/77 99 04/22/22 08:06 92 H 99 04/22/22 08:01 76 98 04/22/22 07:56 77 98 04/22/22 07:51 80 98 04/22/22 07:46 80 99 04/22/22 07:41 78 131/69 99 04/22/22 07:36 87 99 04/22/22 07:31 89 99 04/22/22 07:26 78 98 04/22/22 07:21 80 99 04/22/22 07:16 83 99 04/22/22 07:11 83 124/79 99 04/22/22 07:06 88 99 04/22/22 07:01 80 99 04/22/22 06:56 84 100 04/22/22 06:51 85 99 04/22/22 06:48 83 124/73 04/22/22 06:46 85 99 04/22/22 06:41 83 99 04/22/22 06:36 86 98 04/22/22 06:31 85 99 04/22/22 06:26 86 99 04/22/22 06:21 76 98 04/22/22 06:16 76 97 04/22/22 06:11 84 123/71 98 04/22/22 06:06 82 97 04/22/22 06:01 82 98 04/22/22 05:56 82 97 04/22/22 05:51 81 98 04/22/22 05:46 86 98 04/22/22 05:41 75 139/76 100 04/22/22 05:36 88 98 07 05:31 78 98 04/22/22 05:30 98.5 F 04/22/22 05:26 80 97 04/22/22 05:21 78 98 04/22/22 05:16 83 99 04/22/22 05:11 80 130/74 99 04/22/22 05:06 79 97 04/22/22 05:01 79 98 04/22/22 04:56 80 97 04/22/22 04:51 71 99 04/22/22 04:46 71 97 04/22/22 04:41 81 120/68 98 04/22/22 04:36 74 98 04/22/22 04:31 77 97 04/22/22 04:30 98.3 F 16 04/22/22 04:26 79 97 04/22/22 04:21 78 98 04/22/22 04:16 76 97 04/22/22 04:11 79 111/59 97 04/22/22 04:06 77 97 04/22/22 04:01 78 97 04/22/22 03:56 79 97 04/22/22 03:51 79 97 04/22/22 03:46 79 98 04/22/22 03:41 80 119/59 99 04/22/22 03:36 90 97 04/22/22 03:31 83 99 04/22/22 03:30 98.3 F 18 04/22/22 03:26 92 H 99 04/22/22 03:21 87 99 04/22/22 03:16 76 99 04/22/22 03:11 81 119/65 98 04/22/22 03:06 84 98 04/22/22 03:01 81 98 04/22/22 02:56 84 99 04/22/22 02:51 90 97 04/22/22 02:46 87 98 04/22/22 02:41 85 113/60 99 04/22/22 02:36 86 99 04/22/22 02:31 83 99 04/22/22 02:30 98.3 F 18 04/22/22 02:26 82 98 04/22/22 02:21 88 98 04/22/22 02:16 84 99 04/22/22 02:11 85 120/66 99 04/22/22 02:06 87 98 04/22/22 02:01 89 98 04/22/22 01:56 87 98 04/22/22 01:51 89 99 04/22/22 01:46 93 H 98 04/22/22 01:41 88 121/70 98 04/22/22 01:36 87 98 04/22/22 01:31 95 H 98 04/22/22 01:30 97.5 F L 18 04/22/22 01:26 96 H 99 04/22/22 01:21 98 H 99 04/22/22 01:16 93 H 99 04/22/22 01:11 90 127/72 99 04/22/22 01:06 92 H 99 04/22/22 01:01 92 H 98 04/22/22 00:56 98 H 97 04/22/22 00:51 89 97 04/22/22 00:46 90 99 04/22/22 00:41 91 H 118/65 99 04/22/22 00:36 86 99 04/22/22 00:31 94 H 99 04/22/22 00:30 98.6 F 18 04/22/22 00:26 90 99 04/22/22 00:21 79 99 04/22/22 00:16 85 99 04/22/22 00:11 88 122/67 98 04/22/22 00:06 84 99 04/22/22 00:01 90 99 04/21/22 23:56 87 100 04/21/22 23:51 87 99 04/21/22 23:50 98.6 F 16 04/21/22 23:46 85 98 1822 23:41 91 H 122/76 98 18 23:36 100 H 98 1822 23:31 103 H 99 04/21/22 23:26 80 97 1822 23:21 89 99 22 23:16 87 98 1822 23:11 87 127/63 98 1822 23:06 84 98 1822 23:01 85 99 1822 22:56 85 98 071822 22:51 85 98 22 22:46 97 H 99 07/18/22 22:45 98.5 F 18 07/18/22 22:41 87 118/62 98 07/18/22 22:36 79 99 07/18/22 22:31 96 H 98 07/18/22 22:26 90 99 07/18/22 22:21 83 98 07/18/22 22:16 81 98 07/18/22 22:11 90 137/60 99 07/18/22 22:06 86 98 07/18/22 22:01 84 97 07/18/22 21:56 82 97 07/18/22 21:51 80 97 07/18/22 21:46 84 97 07/18/22 21:45 98.5 F 18 0718/22 21:41 75 123/63 99 0718/22 21:36 82 98 0718/22 21:31 78 98 07/18/22 21:26 82 98 07/18/22 21:21 82 97 07/18/22 21:16 81 98 07/18/22 21:11 91 H 120/64 98 07/18/22 21:06 97 H 99 0718/22 21:01 89 98 07/18/22 20:56 83 98 07/18/22 20:51 89 99 07/18/22 20:46 76 99 07/18/22 20:41 77 121/61 99 07/18/22 20:36 86 99 07/18/22 20:31 84 99 07/18/22 20:30 98.5 F 18 99 07/18/22 20:26 99 H 99 07/18/22 20:21 89 97 07/18/22 20:16 83 98 07/18/22 20:11 87 125/70 99 07/18/22 20:06 80 99 07/18/22 20:01 83 99 07/18/22 19:56 80 98 07/18/22 19:51 75 99 07/18/22 19:46 75 99 07/18/22 19:41 76 127/59 98 07/18/22 19:36 81 98 07/18/22 19:31 80 100 07/18/22 19:26 98 H 98 07/18/22 19:21 91 H 99 07/18/22 19:16 89 99 07/18/22 19:11 93 H 134/64 99 07/18/22 19:06 99 H 99 07/18/22 19:01 95 H 99 07/18/22 18:56 92 H 99 0718/22 18:51 94 H 98 0718/22 18:46 95 H 99 0718/22 18:41 85 122/62 99 0718/22 18:36 93 H 99 0718/22 18:31 94 H 98 0718/22 18:26 97 H 99 0718/22 18:21 90 98 0718/22 18:16 102 H 99 0718/22 18:11 94 H 121/73 99 07/18/22 18:06 96 H 99 0718/22 18:01 93 H 99 0718/22 17:56 86 98 0718/22 17:51 88 99 0718/22 17:46 93 H 99 18/22 17:41 98 H 129/57 98 07/18/22 17:36 98 H 99 0718/22 17:31 98 H 99 18/22 17:26 100 H 99 0718/22 17:21 97 H 98 0718/22 17:16 92 H 99 0718/22 17:11 92 H 130/75 99 0718/22 17:06 103 H 99 0718/22 17:01 88 98 0718/22 16:56 95 H 99 0718/22 16:51 92 H 99 0718/22 16:46 97 H 99 0718/22 16:41 92 H 99 0718/22 16:36 84 99 0718/22 16:31 90 98 0718/22 16:26 78 99 0718/22 16:21 97 H 99 0718/22 16:16 95 H 99 07/18/22 16:11 92 H 128/81 99 07/18/22 16:06 95 H 99 07/18/22 16:01 90 99 07/18/22 15:56 92 H 99 0718/22 15:51 94 H 99 07/18/22 15:46 94 H 99 07/18/22 15:41 94 H 121/73 99 07/18/22 15:36 95 H 99 07/18/22 15:31 87 99 07/18/22 15:26 94 H 99 07/18/22 15:21 95 H 99 0718/22 15:16 102 H 98 0718/22 15:11 95 H 130/77 99 0718/22 15:06 99 H 99 0718/22 15:01 97 H 99 0718/22 14:56 94 H 99 1822 14:51 94 H 98 18/22 14:46 94 H 99 1822 14:41 91 H 132/72 99 1822 14:36 91 H 98 18/22 14:31 97 H 98 18/22 14:26 97 H 98 0718/22 14:21 91 H 98 18/22 14:16 104 H 99 1822 14:11 95 H 126/72 98 071822 14:06 101 H 98 18 14:01 95 H 98 1822 13:56 89 98 071822 13:51 88 99 1822 13:46 96 H 98 1822 13:41 77 130/78 99 18/22 13:36 81 99 0718/22 13:31 78 99 0718/22 13:26 75 98 07/18/22 13:21 79 98 0718/22 13:16 81 99 18/22 13:11 87 122/69 99 0718/22 13:06 80 98 0718/22 13:01 74 98 0718/22 12:56 74 98 18/22 12:51 76 98 0718/22 12:46 81 98 0718/22 12:41 72 128/74 99 0718/22 12:36 76 99 0718/22 12:31 80 98 07/18/22 12:26 81 98 07/18/22 12:21 86 99 0718/22 12:16 74 99 07/18/22 12:11 83 98 0718/22 12:08 83 116/68 0718/22 12:06 88 99 18/22 12:03 81 119/71 0718/22 12:01 79 98 0718/22 11:58 83 115/71 0718/22 11:56 82 98 0718/22 11:53 80 121/59 07/18/22 11:51 84 98 04/21/22 11:48 89 118/58 04/21/22 11:46 95 H 98 04/21/22 11:43 88 121/61 04/21/22 11:41 88 98 04/21/22 11:38 83 116/58 04/21/22 11:36 85 98 04/21/22 11:33 87 115/62 04/21/22 11:31 88 98 04/21/22 11:28 85 114/60 04/21/22 11:26 91 H 98 04/21/22 11:23 85 121/65 04/21/22 11:21 83 99 04/21/22 11:16 83 98 04/21/22 11:11 92 H 99 04/21/22 11:06 91 H 99 04/21/22 11:01 84 99 04/21/22 10:56 85 99 04/21/22 10:51 86 98 04/21/22 10:46 83 99 04/21/22 10:41 90 98 04/21/22 10:36 93 H 99 04/21/22 10:31 95 H 99 Intake and Output 04/21/22 04/22/22 04/22/22 22:59 06:59 14:59 Intake Total 1000 Output Total 2500 1500 Balance -1500 -1500 Intake: IV 1000 Lactated Ringers 1,000 ml 1000 @ 125 mls/hr IV DIRECT [facility] Rx#:[id number] Output: Urine 2500 1500 Indwelling Catheter 1800 1500 Void 100 Other: Total, Output Amount 100 300 Voiding Method Indwelling Catheter - Exam Breasts: Present: deferred Abdomen: Present: soft (obese ) Uterus: Present: fundal height at umbilicus Extremities: Present: edema (trace ) - Labs Labs: Abnormal lab results 04/21/22 04/21/22 04/21/22 Range/Units 09:10 12:00 12:10 WBC 14.3 H (4.5-11.0) K/mm3 RBC 2.89 L (3.65-5.03) M/mm3 Hgb 7.9 L D 8.0 L (10.1-14.3) gm/dl Hct 24.1 L D 25.1 L (30.3-42.9) % Plt Count 116 L (140-440) K/mm3 Magnesium 4.30 H (1.7-2.3) mg/dL Lactate Dehydrogenase (91-180) units/L 04/21/22 04/21/22 04/22/22 Range/Units 12:10 18:20 01:11 WBC (4.5-11.0) K/mm3 RBC (3.65-5.03) M/mm3 Hgb (10.1-14.3) gm/dl Hct (30.3-42.9) % Plt Count (140-440) K/mm3 Magnesium 3.90 H 4.20 H (1.7-2.3) mg/dL Lactate Dehydrogenase 259 H (91-180) units/L 04/22/22 Range/Units 06:34 WBC (4.5-11.0) K/mm3 RBC (3.65-5.03) M/mm3 Hgb (10.1-14.3) gm/dl Hct (30.3-42.9) % Plt Count (140-440) K/mm3 Magnesium 4.10 H (1.7-2.3) mg/dL Lactate Dehydrogenase (91-180) units/L
[2022-04-22] MEDS: PRENATAL VIT27-FE FUMARATE-FOLIC ACID VIT TAB PO SCH (10:55)
[2022-04-22] MEDS: IBUPROFEN 600 MG TAB PO SCH (10:55)
[2022-04-22 17:34] VITALS: BP 136/79
--- NOTE | 2022-04-22 19:33 | Event Note ---
Date: 04/22/22 Pt has completed 24 hours of magnesium sulfate. Her blood pressures have been within normal range over 7 hours of subsequent observation. The patient will be discharged home with follow-up in 2 weeks for blood pressure check.
--- NOTE | 2022-04-22 19:34 | Discharge Summary ---
Providers - Providers Date of Admission: 04/19/22 17:34 Date of discharge: 04/22/22 Attending physician: EDDIE ALEJANDRE Primary care physician: EDDIE ALEJANDRE Hospitalization Reason for admission: other (Atypical hellp syndrome) Delivery: Procedure details: Please see delivery note Episiotomy: none Laceration: 2nd degree Other procedures: none complications: none Discharge diagnosis: IUP at term delivered baby: male Hospital course: This patient was admitted with atypical help syndrome at term and went on to deliver a viable male via spontaneous vaginal delivery. She received magnesium sulfate for seizure prophylaxis during her labor and for 24 hours after delivery. She was observed for 7 hours after discontinuation of the magnesium sulfate and she met discharge criteria. There was incidental finding of COVID-19 positive status. She will follow-up in 7 days with a negative test or in 14 days in the office for blood pressure check. Disposition: 30 STILL A PATIENT - Discharge Diagnoses (1) HELLP syndrome Status: Acute (2) Term of male Status: Acute (3) Obesity Status: Acute Qualifiers: Obesity type: unspecified obesity type Obesity classification: adult class 1 (BMI 30 - 34.9) Serious obesity comorbidity presence: unspecified whether serious comorbidity present Plan - Discharge Medications Prescriptions: Ibuprofen [Motrin] 600 mg PO Q6H PRN #30 tablet PRN Reason: Pain - Provider Discharge Summary Activity: routine, no sex for 6 weeks, no heavy lifting 4 weeks, no strenuous exercise Diet: routine Instructions: routine Additional instructions: [] Smoking cessation referral if applicable(refer to patient education folder for contact #) [] Refer to [facility] Book[facility] Call your doctor immediately for: * Fever > 100.5 * Heavy vaginal bleeding ( >1 pad per hour) * Severe persistent headache * Shortness of breath * Reddened, hot, painful area to leg or breast * Drainage or odor from incision. * Keep incision clean and dry at all times and follow doctor's instructions regarding bathing/showering - Follow up plan Follow up: EDDIE ALEJANDRE MD [Primary Care Provider] - 7 Days (Patient may return to the office in 7 days with a negative COVID test or in 14 days)
== END 2022-04-22 22:15 | disposition home or self-care (01) | DRG 805 ==
LOC: TRG 10:40 → APU 10:42 → LD 17:34 → TRG 17:34 → OB 04-21 04:59 → LD 04-21 10:28 → OB 04-22 12:45
PROVIDERS: ADMIT Obstetrics & Gynecology; ATTEND Obstetrics & Gynecology
PROC: 10E0XZZ Delivery of Products of Conception, External Approach (ICD-10-PCS; principal; 2022-04-20)
PROC: 0KQM0ZZ Repair Perineum Muscle, Open Approach (ICD-10-PCS; 2022-04-20)
PROC: 3E033VJ Introduction of Other Hormone into Peripheral Vein, Percutaneous Approach (ICD-10-PCS; 2022-04-20)
DX: O13.4 Gestational [pregnancy-induced] hypertension without significant proteinuria, complicating childbirth (principal); U07.1 COVID-19; Z37.0 Single live birth; O98.52 Other viral diseases complicating childbirth; Z3A.39 39 weeks gestation of pregnancy; O14.24 HELLP syndrome, complicating childbirth; O99.214 Obesity complicating childbirth; O70.1 Second degree perineal laceration during delivery
CPT/HCPCS: 36415; 59025; 81001; 82565; 83615; 83735; 84450; 84460; 84550; 85014; 85018; 85025; 85027; 86850; 86900; 86901; 96374; G0378; J0360; J0595; J2590; J3010; J3475; J7120; U0003